=== PATIENT | female | born 1935 | race Caucasian/White ===

== ENCOUNTER 2017-09-20 18:55 | Observation (INO) | payer OTHER ==
[~2017-09-20] VITALS: Ht 162.6 cm; Wt 90.7 kg
[~2017-09-20 18:55] MED LIST: KEFLEX500 MG PO; LEVOTHYROXINE0.1 MG PO; LEVOTHYROXINE112 MCG PO; MEDROL4 M2 PO; MOBIC7.5 MG PO; TESSALON PERLE100 M1 PO; TYLENOL #31 TAB PO; VENTOLIN HFA18 GM INH
--- NOTE | 2017-09-20 19:04 | ED CARDIAC/CP/PALPITATIONS ---
History of Present Illness General Chief Complaint: Chest Pain Stated Complaint: BIBA CP Source: patient Exam Limitations: no limitations Allergies Coded Allergies: NO KNOWN ALLERGIES (06/30/15) Reconcile Medications Albuterol Sulfate 1.25 MG/3 ML VIAL.NEB 1 Vial INH/ELY Q4-6 PRN COPD ( Reported) Albuterol Sulfate (Ventolin Hfa) 90 MCG HFA.AER.AD 2 PUF INH Q4-6 PRN PRN SHORTNESS OF BREATH Aspirin (Ecotrin*) 81 MG TABLET.DR 1 TAB PO DAILY HEART HEALTH (Reported) Atorvastatin Calcium 20 MG TABLET 1 TAB PO DAILY HLD (Reported) Benzonatate (Tessalon Perle) 100 MG CAPSULE 1 CAP PO TID PRN COUGH Levothyroxine Sodium 112 MCG TABLET 1 TAB PO DAILY THYROID (Reported) Polyethylene Glycol 3350 (Miralax) 17 GRAM POWD.PACK 1 PAC PO DAILY PRN CONSTIPATION dissolve in water Sennosides/Docusate Sodium (Senokot-S Tablet) 8.6 MG-50 MG TABLET 1 TAB PO BID PRN CONSTIPATION Triage Nurses Notes Reviewed? yes Onset: Abrupt Duration: hour(s): ( 4PM), constant Timing: recent history Quality/Severity: moderate, severe Location: central Radiation: no radiation Activities at Onset: none HPI: 81-year-old female comes into the emergency room for further evaluation of chest pain. Symptoms began around 4 PM today. Denies any shortness of breath vomiting. History of previous [place] according to the patient. She has seen Dr. Albert. She was given FENTANYL nitroglycerin and was given a full-strength aspirin. She is currently chest pain-free. Denies any other associated symptoms. (Bubba Mcguire) Vital Signs & Intake/Output Vital Signs & Intake/Output ED Intake and Output 09/23 0000 09/22 1200 Intake Total 600 220 Output Total 400 300 Balance 200 -80 Intake, Oral 600 220 Output, Urine 400 300 (Emilio Troncoso) Past History Travel History Traveled to [place] past 21 day No Medical History Any Pertinent Medical History? see below for history Endocrine: THYROID DISORDER Surgical History Surgical History: non-contributory Psychosocial History What is your primary language Latvian Family History Hx Contributory? No (Bubba Mcguire) Medical History Cardiovascular: cad (Emilio Troncoso) Review of Systems Review of Systems Constitutional: Reports: no symptoms. EENTM: Reports: no symptoms. Respiratory: Reports: no symptoms. Cardiovascular: Reports: see HPI. GI: Reports: no symptoms. Genitourinary: Reports: no symptoms. Musculoskeletal: Reports: no symptoms. Skin: Reports: no symptoms. Neurological/Psychological: Reports: no symptoms. Hematologic/Endocrine: Reports: no symptoms. Immunologic/Allergic: Reports: no symptoms. All Other Systems: Reviewed and Negative (Bubba Mcguire) Physical Exam Physical Exam General Appearance: well developed/nourished, no apparent distress, alert, awake Head: atraumatic, normal appearance Eyes: Bilateral: normal appearance, EOMI. Ears, Nose, Throat: normal ENT inspection, hearing grossly normal Neck: normal inspection Respiratory: no respiratory distress Cardiovascular: regular rate/rhythm Gastrointestinal: soft Back: normal inspection Extremities: normal capillary refill, normal range of motion, no edema Neurologic/Psych: awake, alert, oriented x 3 Skin: intact, normal color (Bubba Mcguire) Core Measures ACS in differential dx? Yes CVA/TIA Diagnosis No Sepsis Present: No Sepsis Focused Exam Completed? No (Edu Smith DO) Progress Differential Diagnosis: AMI, aortic dissection, cholecystitis, costochondritis, myocarditis, pancreatitis, pericarditis, pneumonia, pneumothorax, pulmonary embolism, PUD/GERD, respiratory failure, unstable angina Diagnostic Imaging: Viewed by Me: Radiology Read. Discussed w/RAD: Radiology Read. Initial ED EKG: normal sinus rhythm, incomplete left bundle-branch block, rate 72, Hand-Off Endorsed To: Emilio Troncoso Endorsed Time: 1952 (Bubba Mcguire) Plan of Care: Orders Procedure Date/time Status OXYGEN 09/22 UNK Complete OXYGEN DAILY CHARGE 09/22 UNK Complete Case was discussed and signed out to me at 8 PM on repeat evaluation patient resting in no apparent distress she denies any pain at this time the symptoms resolved with nitroglycerin repeat blood pressure was within normal limits I discussed with her plan of care pending troponin Case discussed with Dr. Smith who evaluated the patient agrees with plan, he spoke with the patient's finger lift operator Dr. Albert after discussion regarding the patient's presentation and labs we'll make her a telemetry's for repeat troponin telemetry monitoring cardiology consult Case discussed with Dr. WHITE WILL PLACE IN TELE OBS Diagnostic Imaging: Viewed by Me: Radiology Read. Discussed w/RAD: Radiology Read. Radiology Impression: PATIENT: CHRISTIANA BISHOP PRESENT AGE: 81 PATIENT ACCOUNT NO: [id number] : 33 LOCATION: [facility] ([place] ORDERING PHYSICIAN: Bubba EVANS SERVICE DATE: 09/20/17 EXAM TYPE : RAD - XRY-PORTABLE CHEST XRAY EXAMINATION: XR PORTABLE CHEST CLINICAL INFORMATION: Chest pain. COMPARISON: Chest CTA 07/07/2017. TECHNIQUE: Portable frontal view of the chest was obtained. FINDINGS: There is mild elevation of the right hemidiaphragm. The lungs are clear without consolidation, edema, or effusion. There is no pneumothorax. The osseous structures are grossly intact. The cardiomediastinal silhouette appears normal. IMPRESSION: No active disease in the chest. DICTATED BY: Saqib Corral MD DATE/TIME DICTATED:09/20/172049 SR. OPERATIONS MANAGER:VLADIMIR DATE/TIME TRANSCRIBED:09/20/172049 CONFIDENTIAL, DO NOT COPY WITHOUT APPROPRIATE AUTHORIZATION. <Electronically signed in Other Vendor System> SIGNED BY: Saqib Corral MD 09/20/172054 (Emilio Troncoso) Departure Departure Condition: Stable Referrals: Alia Mchugh DO (PCP/Family) Departure Forms: Customer Survey General Discharge Information Prescriptions: Current Visit Scripts Polyethylene Glycol 3350 (Miralax) 1 PAC PO DAILY PRN CONSTIPATION #30 PAC dissolve in water Sennosides/Docusate Sodium (Senokot-S Tablet) 1 TAB PO BID PRN CONSTIPATION #60 TAB (Bubba Mcguire) Departure Time of Disposition: 2049 Disposition: HOME OR SELF CARE Clinical Impression Primary Impression: Chest pain Observation Note Spoke With: Santos HU,Kelley Physician Advisor Notified: KALEIGH HU,DURAN Abreu Place Patient In: Non-ED OBS Care Area Rationale for Observation: My rational for observation is as follows Cardiology consult trend labs telemetry monitoring trend troponins premature discharge would BE medically harmful (Emilio Troncoso) PA/RAILWAY YARD ASSISTANT Co-Sign Statement Statement: ED Attending supervision documentation- [X] I saw and evaluated the patient. I have also reviewed all the pertinent lab results and diagnostic results. I agree with the findings and the plan of care as documented in the PA's/RAILWAY YARD ASSISTANT's documentation. [] I have reviewed the ED Record and agree with the PA's/RAILWAY YARD ASSISTANT's documentation. [] Additions or exceptions (if any) to the PAs/RAILWAY YARD ASSISTANT's note and plan are summarized below: [] Resident Co-Sign Statement Statement: ED Attending supervision documentation- [X] I saw and evaluated the patient. I have also reviewed all the pertinent lab results and diagnostic results. I agree with the findings and the plan of care as documented in the Resident's documentation. [] I have reviewed the ED Record and agree with the Resident's documentation. [] Additions or exceptions (if any) to the Resident's note and plan are summarized below: [] I have seen and personally examined the patient and I agree with the PAs evaluation. Ongoing intermittent chest pain. Nonspecific EKG changes. Troponin was 0.1 case was discussed with Dr. Albert. He will consult. The patient was Placed in observation on the hospitalist service. (Edu Smith DO) Critical Care Note Critical Care Note Critical Care Time: 30-74 min (Edu Smith DO) Resident Co-Sign Statement Statement: ED Attending supervision documentation- [X] I saw and evaluated the patient. I have also reviewed all the pertinent lab results and diagnostic results. I agree with the findings and the plan of care as documented in the Resident's documentation. [] I have reviewed the ED Record and agree with the Resident's documentation. [] Additions or exceptions (if any) to the Resident's note and plan are summarized below: [] I have seen and personally examined the patient and I agree with the PAs evaluation. Ongoing intermittent chest pain. Nonspecific EKG changes. Troponin was 0.1 case was discussed with Dr. Albert. He will consult. The patient was Placed in observation on the hospitalist service. (Edu Smith DO) Critical Care Note Critical Care Note Critical Care Time: 30-74 min (Edu Smith DO)
[2017-09-20 19:44] LABS: ABSOLUTE BASOPHIL COUNT 0.1 /CUMM (0.0-0.2); ABSOLUTE EOSINOPHIL COUNT 0.3 /CUMM (0.0-0.7); ABSOLUTE GRANULOCYTE CT 4.2 /CUMM (1.4-6.5); ABSOLUTE LYMPH COUNT 1.4 /CUMM (1.2-3.4); ABSOLUTE MONOCYTE COUNT 0.8 /CUMM (0.10-0.60); EOSINOPHIL % 4.9 % (0-5); HEMATOCRIT 42.1 % (37-47); MEAN CORPUSCULAR HGB CONC 32.3 G/DL (33.0-37.0); MEAN CORPUSCULAR VOLUME 83.5 FL (81.0-99.0); MEAN PLATELET VOLUME 8.3 FL (7.4-10.4); PLATELET COUNT 245 /CUMM (130-400); RBC DISTRIBUTION WIDTH 18.3 % (11.5-14.5); RED BLOOD CELL CT 5.04 /CUMM (4.20-5.40); WHITE BLOOD CELL COUNT 6.7 /CUMM (4.8-10.8)
--- NOTE | 2017-09-20 20:55 | RADIOLOGY REPORT ---
EXAMINATION: XR PORTABLE CHEST CLINICAL INFORMATION: Chest pain. COMPARISON: Chest CTA 07/07/2017. TECHNIQUE: Portable frontal view of the chest was obtained. FINDINGS: There is mild elevation of the right hemidiaphragm. The lungs are clear without consolidation, edema, or effusion. There is no pneumothorax. The osseous structures are grossly intact. The cardiomediastinal silhouette appears normal. IMPRESSION: No active disease in the chest.
--- NOTE | 2017-09-21 00:57 | History & Physical ---
Gabi Castro MD 09/21/17 0056: General Information and HPI MD Statement: I have seen and personally examined CHRISTIANA BISHOP and documented this H&P. The patient is a 81 year old F who presented with a patient stated chief complaint of [Chest pain]. Source of Information: patient Exam Limitations: no limitations History of Present Illness: 81 years old female with PMH of COPD on oxygen at night ,CAD and hypothyroidism who came to the ED c/o of chest pain which started in the morning it was sharp 10/10 in severity,localized in midchest and this started while she was sitting down, increased with deep breathing . It was associated with double vision, SOB. Pt mentioned that her chest pain was persistent till she came to the ED and resolved after she got the nitoglycerin and Fentanyl patch. Pt follow up withi DR Sibley and she was at his office last week when he did an Echo and nucleotide stress test, according to the patient the results of these study were fine. Pt lives at home with her son, uses a walker and wheelchair to ambulate Patient was scheduled to see Dr. Weber on for COPD Pt finished a course of Valcyclovir yesterday which was prescribed by her primary care doctor for persistent headache which had is due to shingles ED course: Vital signs: Blood pressure 206/91, dropped to 153/78 after worse, pulse 65, respiratory 22, temperature 97.8, pulse ox 95 on 2 L Labs on admission: WBC 56.7, hemoglobin 13.6, platelet 245, sodium 138, potassium 4.4, BUN 21, creatinine 1.2, glucose 102, troponin 0.1, alkaline phosphatase 81 Chest x-ray no active disease in the chest EKG showed normal sinus rhythm with a rate of 72, widened QRS 112, QTC 408 Allergies/Medications Allergies: Coded Allergies: NO KNOWN ALLERGIES (06/30/15) Past History Travel History Traveled to [place] past 21 day No Medical History Cardiovascular: cad Respiratory: COPD Endocrine: THYROID DISORDER Surgical History Surgical History: non-contributory Past Family/Social History Psychosocial History ETOH Use: denies use Illicit Drug Use: denies illicit drug use Review of Systems Review of Systems Constitutional: Reports: chills, malaise, weakness. Denies: diaphoresis, fever. EENTM: Denies: no symptoms. Cardiovascular: Reports: chest pain. Denies: edema, orthopena, palpitations, peripheral edema. Respiratory: Denies: no symptoms. GI: Denies: constipation, diarrhea, distention, melena, nausea, vomiting. Genitourinary: Denies: discharge, dysuria, frequency, hematuria, hesitation, nocturia. Musculoskeletal: Denies: gout, joint pain, joint swelling, muscle pain. Skin: Denies: no symptoms. Neurological/Psychological: Denies: no symptoms. Exam & Diagnostic Data Last 24 Hrs of Vital Signs/I&O Vital Signs Date Time Temp Pulse Resp B/P B/P Pulse O2 O2 Flow FiO2 Mean Ox Delivery Rate 09/20 2212 97.8 65 22 153/78 95 Nasal 2.0L Cannula 09/20 2035 98.4 63 22 143/65 96 Nasal 2.0L Cannula 09/20 1936 64 20 138/76 95 Nasal 2.0L Cannula 09/20 1930 95 Nasal 2.0L Cannula 09/20 1907 78 20 206/91 99 Nasal 4.0L Cannula Intake & Output 09/21 0800 09/21 0000 09/20 1600 Intake Total Output Total Balance Patient 200 lb Weight Weight Reported by Patient Measurement Method Physical Exam General Appearance Alert, Oriented X3, Cooperative, No Acute Distress Skin No Rashes HEENT Atraumatic, PERRLA, EOMI, Mucous Membr. moist/pink Neck Supple, No JVD Cardiovascular Normal S1, Normal S2, No Murmurs Lungs Clear to Auscultation, Normal Air Movement Abdomen Normal Bowel Sounds, Soft, No Tenderness Neurological Normal Speech, Strength at 5/5 X4 Ext, Normal Tone Extremities No Clubbing, No Cyanosis, No Edema Vascular Normal Pulses, Pulses Symmetrical Sepsis Peripheral Pulse Location: Radial Assessment/Plan Assessment: 81 years old female with PMH of COPD on oxygen at night ,CAD and hypothyroidism who came to the ED c/o of chest pain which started in the morning it was sharp 10/10 in severity,localized in midchest and this started while she was sitting down, increased with deep breathing, and EKG didn't show acute changes from the previous one, troponin was negative #Angina: Admit the patient to telemetry floor Close monitoring of vital signs Aspirin 81 mg daily Serial troponin and EKG Close monitoring CBCs and BEP Is and Os PT consult Cardiology consult appreciated (patient follow-up with Dr. Sibley) Pain control with Tylenol, Vicodin, #History of COPD: Continue home meds including Ventolin Oxygen to keep oxygen saturation above 92 TRC/Nebs #History of hypothyroidism: Continue home dose of levothyroxine 112 g daily full code DVT prophylaxis with subcutaneous heparin Heart healthy diet As Ranked By This Provider Problem List: 1. Chest pain 2. COPD (chronic obstructive pulmonary disease) Core Measures/Misc (04/17) Acute Coronary Syndrome ACS Diagnosis: Yes Congestive Heart Failure Congestive Heart Failure Diagnosis No Cerebrovascular Accident CVA/TIA Diagnosis: No VTE (View Protocol) VTE Risk Factors Age>40 No Mechanical VTE Prophylaxis d/t N/A MechProphylax Ordered No VTE Pharm Prophylaxis d/t NA PharmProphylax ordered Sepsis (View protocol) Sepsis Present: No Santos HU, [facility] 09/21/17 0213: General Information and HPI Allergies/Medications Home Med list Albuterol Sulfate 1.25 MG/3 ML VIAL.NEB 1 Vial INH/ELY Q4-6 PRN COPD ( Reported) Albuterol Sulfate (Ventolin Hfa) 90 MCG HFA.AER.AD 2 PUF INH Q4-6 PRN PRN SHORTNESS OF BREATH Aspirin (Ecotrin*) 81 MG TABLET.DR 1 TAB PO DAILY HEART HEALTH (Reported) Atorvastatin Calcium 20 MG TABLET 1 TAB PO DAILY HLD (Reported) Benzonatate (Tessalon Perle) 100 MG CAPSULE 1 CAP PO TID PRN COUGH Levothyroxine Sodium 112 MCG TABLET 1 TAB PO DAILY THYROID (Reported) Attending MD Review Statement Attending Statement Attending MD Statement: examined this patient, discuss w/resident/PA/GI PHYSICIAN, agreed w/resident/PA/GI PHYSICIAN, reviewed images, amended to note Attending Assessment/Plan: 81 yo F with h/o COPD on nocturnal O2, CAD s/p MD, hypothyroidism, CKD stage 3, is here for evaluation of chest pain, nonradiating, worse with deep inspiration. She got nitro, aspirin and fentanyl with relief of her symptoms. Patient had a recent echo and stress test (1 week back) and was apparently normal. Vitals stable. Labs: BUN 20, creat 1.2 (baseline), trop 0.10, EKG: sinus rhythm, incomplete LBBB, no acute changes. Assessment and plan: 1. Chest pain, rule out ACS in this patient with previous h/o CAD 23 hour observation on Telemetry, monitor for arrhythmias, serial EKG and trop, no need to repeat echo and Cardio consult. Continue aspirin, nitro and statin. Please obtain records from credit card interviewer. - PT consult DVT ppx Lovenox. Full code. Observation Initial Note - I have personally examined CHRISTIANA BISHOP on 09/21/17 at 0214. The disposition of CHRISTIANA BISHOP is uncertain at this time and before a determination can be made, she requires a period of observation for the following reasons [Chest pain, rule out ACS.] Ryley Verdin 09/21/17 0337: Resident Review Statement Resident Statement: examined this patient, discussed with merchandising intern, agreed with merchandising intern, discussed with family, reviewed EMR data (avail), discussed with nursing , discussed with case mgmt, reviewed images, amended to note Other Findings: This is 81 years old female with medical history of COPD on oxygen at night ,CAD and hypothyroidism. She presented to the emergency department the chief complaint of chest pain. Patient stated that the chest pain started in the morning it was sharp 10/10 in severity, localized in midchest and this started while she was sitting down, increased with deep breathing, patient stated this is not the first time she has similar symptoms. Patient stated that currently she doesn't have a chest pain after she received nitroglycerin and fentanyl patch in the ED. Patient stated that she follow with Dr. Albert her credit card interviewer she saw him last week, she mentioned that she had done nuclear stress test and echocardiogram with him that was came back within normal and he prescribed for her nitroglycerin. Patient live with her son and he was walker. Patient stated that she had couple multiple for the past. Physical exam she cannot bend imaging as above. Problem list: -Chest pain to rule out ACS. -Generalized weakness. -COPD on nocturnal oxygen at home Plan: -Admit patient to telemetry floor -Vitals every shift, -Serial troponin and EKG -Cardiology consultation in a.m. -Hold off on echocardiogram until cardiology evaluates -Physical therapy consultation in a.m. -TRC nebs as needed, O2 nocturnal. -Continue home medication -Pain pathway -Heart healthy diet -DVT prophylaxisLovenox -Full code
[2017-09-21] MEDS ORDERED: ASPIRIN EC81 M1 PO (01:01)
[2017-09-21] MEDS ORDERED: ATORVASTATIN CA20 M1 PO (01:03)
[2017-09-21 06:00] LABS: ABSOLUTE BASOPHIL COUNT 0 /CUMM (0.0-0.2); ABSOLUTE EOSINOPHIL COUNT 0.3 /CUMM (0.0-0.7); ABSOLUTE GRANULOCYTE CT 4.3 /CUMM (1.4-6.5); ABSOLUTE LYMPH COUNT 1.4 /CUMM (1.2-3.4); ABSOLUTE MONOCYTE COUNT 0.6 /CUMM (0.10-0.60); BASOPHIL % 0.6 % (0.0-2.0); EOSINOPHIL % 4.5 % (0-5); GRANULOCYTE % 64.6 % (42.2-75.2); HEMATOCRIT 41.6 % (37-47); MEAN CORPUSCULAR HGB 27.1 PG (27.0-31.0); MEAN CORPUSCULAR HGB CONC 32.6 G/DL (33.0-37.0); MEAN CORPUSCULAR VOLUME 83.1 FL (81.0-99.0); MEAN PLATELET VOLUME 8.3 FL (7.4-10.4); PLATELET COUNT 237 /CUMM (130-400); RBC DISTRIBUTION WIDTH 18.2 % (11.5-14.5); RED BLOOD CELL CT 5.01 /CUMM (4.20-5.40); WHITE BLOOD CELL COUNT 6.7 /CUMM (4.8-10.8)
--- NOTE | 2017-09-21 08:38 | PN-Observation ---
Darrel HU,[facility] 09/21/17 0832: Observation Note Observation Note _ I have personally examined CHRISTIANA BISHOP. her disposition is uncertain at this time. Before a determination can be made, she requires continued observation for the following reasons [Chest pain]. Assessment/Plan Medical Assessment: 81 years old woman with PMH of COPD on oxygen at night, CAD and hypothyroidism who came to the ED yesterday complaining of sudden onset of chest pain occuring at rest which increased with deep breathing and was associated with double vision and shortness of breath. Her chest pain resolved after she got the nitoglycerin and Fentanyl patch. She follows up with electric operator, Dr. Albert and she was at his office last week and reportedly had an Echo and nucleotide stress alfredo which were "fine according to the patient. Today she is free of chest pain and shortness of breath. Her serial EKG's show no ST changes overnight and her troponins have been negative. Her oxygen saturation is 99% on room air and her chest x-ray shows no acute abnormality. At this time we are awaiting cardiology review and if she is cleared with no further testing required, she can be discharged with close cardiology follow up. Plan 1. Angina-now resolved * Continue ekg monitor tech for now * Close monitoring of vital signs * Continue aspirin 81 mg daily * CBC and BEP unremarkable this morning * Awaiting physical therapy evaluation * Follow up cardiology consult this morning (patient follow-up with Dr. Sibley) * Pain control with Tylenol, Vicodin, 2. History of COPD: * Continue home meds including Ventolin inhaler * Oxygen by nasal canula to keep oxygen saturation above 92 * TRC/Nebs 3. History of hypothyroidism: * Continue home dose of levothyroxine 112 g daily Full code DVT prophylaxis with subcutaneous heparin and ALPS Heart healthy diet Problem List: 1. Chest pain 2. Dyspnea DVT/Prophylaxis: pharmacological Discharge Plan Stable for Discharge? Yes Subjective Follow-up For: Chest pain Complaints: no complaints Subjective: Ms Bishop has no complaints this morning. She denies chest pain, palpitations or shortness of breath or lightheadedness. She is interested in being discharged. Review of Systems Constitutional: Reports: see HPI. Denies: chills, diaphoresis, fever. EENTM: Reports: double vision (Intermitent). Cardiovascular: Reports: see HPI. Denies: edema, palpitations, syncope. Respiratory: Denies: cough, short of breath, sputum production. Gastrointestinal: Denies: abdominal pain, nausea. Objective Last 24 Hrs of Vital Signs/I&O Vital Signs Date Time Temp Pulse Resp B/P B/P Pulse O2 O2 Flow FiO2 Mean Ox Delivery Rate 09/21 0552 96.7 62 18 151/70 99 Room Air 09/20 2212 97.8 65 22 153/78 95 Nasal 2.0L Cannula 09/20 2035 98.4 63 22 143/65 96 Nasal 2.0L Cannula 09/20 1936 64 20 138/76 95 Nasal 2.0L Cannula 09/20 1930 95 Nasal 2.0L Cannula 09/20 1907 78 20 206/91 99 Nasal 4.0L Cannula Intake & Output 09/21 1600 09/21 0800 09/21 0000 Intake Total Output Total Balance Patient 200 lb Weight Weight Reported by Patient Measurement Method Physical Exam General Appearance: Alert, Oriented X3, Cooperative, No Acute Distress Skin: No Rashes Skin Temp/Moisture Exam: Warm/Dry Sepsis Skin Exam (color): Normal for Ethnicity HEENT: Atraumatic, PERRLA, EOMI, Mucous Membr. moist/pink Neck: Supple, No JVD Cardiovascular: Regular Rate, Normal S1, Normal S2, No Murmurs Lungs: Clear to Auscultation, Normal Air Movement Abdomen: Normal Bowel Sounds, Soft, No Tenderness, No Hepatospenomegaly, No Masses Neurological: Normal Speech, Strength at 5/5 X4 Ext, Normal Tone, Cranial Nerves 3-12 NL Extremities: No Edema, No Tenderness/Swelling Current Medications: Current Medications Sig/Mercedes Start time Last Medication Dose Route Stop Time Status Admin Acetaminophen 500 MG Q6P PRN 09/21 010 AC PO Acetaminophen 975 MG ONCE ONE 09/20 2044 DC 09/20 PO 09/20 Acetaminophen 0 .STK-MED ONE 09/20 2037 DC PO Albuterol Sulfate 2 PUF Q4-6 PRN PRN 09/21 0115 AC INH Aspirin Buffered 81 MG DAILY 09/21 1000 AC PO Atorvastatin Calcium 20 MG 1700 09/21 1700 AC PO Heparin Sodium 0 .STK-MED ONE 09/21 0601 DC (Porcine) .ROUTE Heparin Sodium 5,000 UNIT Q8 09/21 0057 AC 09/21 (Porcine) SC 0640 Hydrocodone Bitart/ 1 TAB Q12P PRN 09/21 0115 AC Acetaminophen PO Levothyroxine Sodium 0.112 MG DAILY AC 09/21 0700 AC 09/21 PO 0640 Last 24 Hrs of Labs/Mics: Laboratory Tests 09/21/17 0825: Troponin I Pending 09/21/17 0545: Anion Gap 11, Estimated GFR 43 L, BUN/Creatinine Ratio 16.7, CBC w Diff NO MAN DIFF REQ, RBC 5.01, MCV 83.1, MCH 27.1, MCHC 32.6 L, RDW 18.2 H, MPV 8.3, Gran % 64.6, Lymphocytes % 21.4, Monocytes % 8.9, Eosinophils % 4.5, Basophils % 0.6, Absolute Granulocytes 4.3, Absolute Lymphocytes 1.4, Absolute Monocytes 0.6, Absolute Eosinophils 0.3, Absolute Basophils 0 09/21/17 0208: Troponin I 0.10 09/20/17 1925: Anion Gap 11, Estimated GFR 43 L, BUN/Creatinine Ratio 17.5, Glucose 102 H, Calcium 9.0, Total Bilirubin 0.4, AST 23, ALT 18, Alkaline Phosphatase 81, Troponin I 0.10, Total Protein 6.8, Albumin 4.0, Globulin 2.8, Albumin/Globulin Ratio 1.4, CBC w Diff NO MAN DIFF REQ, RBC 5.04, MCV 83.5, MCH 27.0, MCHC 32.3 L, RDW 18.3 H, MPV 8.3, Gran % 62.0, Lymphocytes % 20.3 L, Monocytes % 11.8 H , Eosinophils % 4.9, Basophils % 1.0, Absolute Granulocytes 4.2, Absolute Lymphocytes 1.4, Absolute Monocytes 0.8 H, Absolute Eosinophils 0.3, Absolute Basophils 0.1 Carolina HU,Abigail 09/21/17 1421: Observation Note Observation Note _ I have personally examined CHRISTIANA BISHOP her disposition is uncertain at this time. Before a determination can be made, she requires continued observation for the following reasons . 81-year-old female past medical history of coronary artery disease, hypothyroidism and COPD who is here with an episode of chest pain at rest. No EKG changes and troponin trended x3- 0.10. I spoke to cardiology who feels there is no cardiac etiology of this chest pain. At this point I need to evaluate whether the back pain is playing a role in whether she has any limited mobility secondary to the back pain. No need to repeat the echo as it was recently done and will need to follow up with collateral history from the family. If everything is stable, anticipate discharge soon with outpatient follow-up.
[2017-09-21] MEDS ORDERED: ALBUTEROL1.25 MG/1 INH/SOL (10:15)
--- NOTE | 2017-09-21 10:20 | Patient Discharge Instructions ---
Discharge Instructions General Discharge Information You were seen/treated for: Chest pain Watch for these problems: Worsening chest pain and shortness of breath. Special Instructions: 1. Please follow up with your primary care provider and rotary driller prospecting, Dr. Nelson within 1 week of discharge. Diet Continue normal diet: No Recommended Diet: Heart Healthy Activity Full Activity/No Limits: No Activity Self Limited: Yes Acute Coronary Syndrome Inclusion Criteria At DC or during hospital stay patient has or had the following: ACS DIAGNOSIS No Discharge Core Measures Meds if any: Prescribed or Continued at Discharge SHERRILL/ARB if EF <40% No Meds if any: NOT Prescribed or Continued at Discharge Congestive Heart Failure Inclusion Criteria At DC or during hospital stay patient has or had the following: CHF DIAGNOSIS No Discharge Core Measures Meds if any: Prescribed or Continued at Discharge Meds if any: NOT Prescribed or Continued at Discharge Cerebrovascular accident Inclusion Criteria At DC or during hospital stay patient has or had the following: CVA/TIA Diagnosis No Discharge Core Measures Meds if any: Prescribed or Continued at Discharge Meds if any: NOT Prescribed or Continued at Discharge Venous thromboembolism Inclusion Criteria VTE Diagnosis No VTE Type NONE VTE Confirmed by (Test) NONE Discharge Core Measures - Per Current guidelines, there needs to be overlap - treatment for the first 5 days of Warfarin therapy. - If discharged on Warfarin prior to 5 days of - overlap therapy, the patient will need to be - assessed for post discharge needs including - *Post discharge parental anticoagulation - *Warfarin and/or parental anticoagulation education - *Follow up date to check INR post discharge At least 5 days overlap therapy as Inpatient No Meds if any: Prescribed or Continued at Discharge Note: Overlap Therapy is Warfarin and Anticoagulant Meds if any: NOT Prescribed or Continued at Discharge
--- NOTE | 2017-09-21 10:58 | Cons- Cardiology ---
Walter HU,[facility] 09/21/17 1047: General Information and HPI Consulting Request Date of Consult: 09/21/17 Requested By: Carolina HU,Abigail Stanley Reason for Consult: Chest pain ACS Source of Information: patient, old records Exam Limitations: no limitations History of Present Illness: Ms. Thomason is 81 year old female with past medical history significant for COPD on nocturnal oxygen, coronary artery disease, hypothyroidism, chronic back pain who presented to ED yesterday for chief complaint of chest pain for 1 day. Patient reported being fatigued and very tired upon waking up yesterday morning, started to have retrosternal pressure chest pain on rest, pain was progressively worsening associated with shortness of breath, dizziness. Pain didn't improve with nitroglycerin sublingual tabs 2. Patient denied palpitation, pain radiation to arm or jaw, coug, lower extremity edema. Patient reported similar pain in the past, was evaluated by PCP who told her that she had "small heart attack"and was referred to Dr. Albert for evaluation. Patient had recently echocardiogram and nuclear stress test and was told that results were "okay" and prescribed nitroglycerin sublingual tabs for chest pain. Patient denied any previous hospitalization for cardiac reasons, having any cardiac procedure or stent. Her primary care physician is Dr. Mchugh and has seen Dr. Albert only twice. Of note: Patient was recently diagnosed with shingles on the left forehead and prescribed valacyclovir. Patient denied any rash however PCP thought it is shingles. Currently no lesions were noted. No pain except for mild headache. Allergies/Medications Allergies: Coded Allergies: NO KNOWN ALLERGIES (06/30/15) Past History Travel History Traveled to [place] past 21 day No Medical History Cardiovascular: cad Respiratory: COPD Endocrine: THYROID DISORDER Surgical History Surgical History: non-contributory Psychosocial History ETOH Use: denies use Illicit Drug Use: denies illicit drug use Exam & Diagnostic Data Vital Signs and I&O Vital Signs Date Time Temp Pulse Resp B/P B/P Pulse O2 O2 Flow FiO2 Mean Ox Delivery Rate 09/21 0552 96.7 62 18 151/70 99 Room Air 09/20 2212 97.8 65 22 153/78 95 Nasal 2.0L Cannula 09/20 2035 98.4 63 22 143/65 96 Nasal 2.0L Cannula 02/20 1937 64 20 138/76 95 Nasal 2.0L Cannula 09/20 1930 95 Nasal 2.0L Cannula 09/20 1907 78 20 206/91 99 Nasal 4.0L Cannula Intake & Output 09/21 0809/21 0000 09/20 1600 09/20 0809/20 0000 Intake Total Output Total Balance Patient 90.718 kg Weight Weight Reported by Patient Measurement Method Physical Exam: Sitting in the recliner comfortably with no acute distress CVS S1, S2, sytolyic murmur 3 LIS Chest clear, normal air entery Abdomen soft BS+ LE trace bilateral pedal edema Labs/Iglesia Results: Laboratory Tests 09/21 09/21 09/21 0850 0545 0208 Chemistry Sodium (137 - 145 mmol/L) 141 Potassium (3.5 - 5.1 mmol/L) 4.4 Chloride (98 - 107 mmol/L) 107 Carbon Dioxide (22 - 30 mmol/L) 24 Anion Gap (5 - 16) 11 BUN (7 - 17 mg/dL) 20 H Creatinine (0.5 - 1.0 mg/dL) 1.2 H Estimated GFR (>60 ml/min) 43 L BUN/Creatinine Ratio (7 - 25 %) 16.7 Troponin I (< 0.11 ng/ml) 0.10 0.10 Hematology CBC w Diff NO MAN DIFF REQ WBC (4.8 - 10.8 /CUMM) 6.7 RBC (4.20 - 5.40 /CUMM) 5.01 Hgb (12.0 - 16.0 G/DL) 13.6 Hct (37 - 47 %) 41.6 MCV (81.0 - 99.0 FL) 83.1 MCH (27.0 - 31.0 PG) 27.1 MCHC (33.0 - 37.0 G/DL) 32.6 L RDW (11.5 - 14.5 %) 18.2 H Plt Count (130 - 400 /CUMM) 237 MPV (7.4 - 10.4 FL) 8.3 Gran % (42.2 - 75.2 %) 64.6 Lymphocytes % (20.5 - 51.1 %) 21.4 Monocytes % (1.7 - 9.3 %) 8.9 Eosinophils % (0 - 5 %) 4.5 Basophils % (0.0 - 2.0 %) 0.6 Absolute Granulocytes (1.4 - 6.5 /CUMM) 4.3 Absolute Lymphocytes (1.2 - 3.4 /CUMM) 1.4 Absolute Monocytes (0.10 - 0.60 /CUMM) 0.6 Absolute Eosinophils (0.0 - 0.7 /CUMM) 0.3 Absolute Basophils (0.0 - 0.2 /CUMM) 0 09/20 192 Chemistry Sodium (137 - 145 mmol/L) 138 Potassium (3.5 - 5.1 mmol/L) 4.4 Chloride (98 - 107 mmol/L) 103 Carbon Dioxide (22 - 30 mmol/L) 23 Anion Gap (5 - 16) 11 BUN (7 - 17 mg/dL) 21 H Creatinine (0.5 - 1.0 mg/dL) 1.2 H Estimated GFR (>60 ml/min) 43 L BUN/Creatinine Ratio (7 - 25 %) 17.5 Glucose (65 - 99 mg/dL) 102 H Calcium (8.4 - 10.2 mg/dL) 9.0 Total Bilirubin (0.2 - 1.3 mg/dL) 0.4 AST (14 - 36 U/L) 23 ALT (9 - 52 U/L) 18 Alkaline Phosphatase (<127 U/L) 81 Troponin I (< 0.11 ng/ml) 0.10 Total Protein (6.3 - 8.2 g/dL) 6.8 Albumin (3.5 - 5.0 g/dL) 4.0 Globulin (1.9 - 4.2 gm/dL) 2.8 Albumin/Globulin Ratio (1.1 - 2.2 %) 1.4 Hematology CBC w Diff NO MAN DIFF REQ WBC (4.8 - 10.8 /CUMM) 6.7 RBC (4.20 - 5.40 /CUMM) 5.04 Hgb (12.0 - 16.0 G/DL) 13.6 Hct (37 - 47 %) 42.1 MCV (81.0 - 99.0 FL) 83.5 MCH (27.0 - 31.0 PG) 27.0 MCHC (33.0 - 37.0 G/DL) 32.3 L RDW (11.5 - 14.5 %) 18.3 H Plt Count (130 - 400 /CUMM) 245 MPV (7.4 - 10.4 FL) 8.3 Gran % (42.2 - 75.2 %) 62.0 Lymphocytes % (20.5 - 51.1 %) 20.3 L Monocytes % (1.7 - 9.3 %) 11.8 H Eosinophils % (0 - 5 %) 4.9 Basophils % (0.0 - 2.0 %) 1.0 Absolute Granulocytes (1.4 - 6.5 /CUMM) 4.2 Absolute Lymphocytes (1.2 - 3.4 /CUMM) 1.4 Absolute Monocytes (0.10 - 0.60 /CUMM) 0.8 H Absolute Eosinophils (0.0 - 0.7 /CUMM) 0.3 Absolute Basophils (0.0 - 0.2 /CUMM) 0.1 Diagnostic Data EKG Results Sinus rhythm, rate 64 Left bundle branch block Left anterior fascicular branch block No ST or T-wave changes CXR Results FINDINGS: There is mild elevation of the right hemidiaphragm. The lungs are clear without consolidation, edema, or effusion. There is no pneumothorax. The osseous structures are grossly intact. The cardiomediastinal silhouette appears normal. IMPRESSION: No active disease in the chest. Assessment/Plan Assessment/Plan Ms. Thomason is 81 year old female with past medical history significant for COPD on nocturnal oxygen, coronary artery disease, hypothyroidism, chronic back pain for which she used to sleep in recliner who presented to ED with chief complaint of chest pain for 1 day. We think her chest pain is mostly noncardiac related given that chest pain was for at least 6 hours with negative initial and follow up troponin and EKG. Pain didn't respond with nitroglycerin (2 at home and 1 in ambulance) however fentanyl patch helped her pain. Patient denied severe coughing, fall, heartburn. Problem list 1-Recurrent chest pain in setting of normal recent echocardiogram and nuclear stress test 2-negative troponin and EKG 3 Plan -Continue telemetry monitoring -No need for further troponin and EKG trending except if patient develops chest pain -No need to repeat echocardiogram since recent one (aweek ago) was normal -Consider CT thoracic and lumbar spine for chronic back pain -PT evaluation Consult Acknowledgment - Thank you for your consult request. Poncho Pal MD 09/23/17 2206: General Information and HPI Allergies/Medications Home Med List: Albuterol Sulfate 1.25 MG/3 ML VIAL.NEB 1 Vial INH/ELY Q4-6 PRN COPD ( Reported) Albuterol Sulfate (Ventolin Hfa) 90 MCG HFA.AER.AD 2 PUF INH Q4-6 PRN PRN SHORTNESS OF BREATH Aspirin (Ecotrin*) 81 MG TABLET.DR 1 TAB PO DAILY HEART HEALTH (Reported) Atorvastatin Calcium 20 MG TABLET 1 TAB PO DAILY HLD (Reported) Benzonatate (Tessalon Perle) 100 MG CAPSULE 1 CAP PO TID PRN COUGH Levothyroxine Sodium 112 MCG TABLET 1 TAB PO DAILY THYROID (Reported) Polyethylene Glycol 3350 (Miralax) 17 GRAM POWD.PACK 1 PAC PO DAILY PRN CONSTIPATION dissolve in water Sennosides/Docusate Sodium (Senokot-S Tablet) 8.6 MG-50 MG TABLET 1 TAB PO BID PRN CONSTIPATION Assessment/Plan Assessment/Plan Attending addendum The patient was seen and examined by me and all pertinent results and data were reviewed. THe case was discussed in detail with the patient and the hospital care team. I agree with the plan as outlined above. Consult Acknowledgment - Thank you for your consult request.
--- NOTE | 2017-09-21 16:26 | Event Note ---
Event Note Event Note: Patient was seen by physical therapy and will need to be reassessed in the morning because at this time she will 24 hour home-care before safe discharge home can be arranged. Case discussed with disability case manager Sunita and we will start arranging this with patient's son.
[2017-09-21 19:06] VITALS: BP 108/64
[2017-09-22 06:37] VITALS: BP 150/70
--- NOTE | 2017-09-22 08:42 | PN-Observation ---
Darrel HU,[facility] 09/22/17 0842: Observation Note Observation Note _ I have personally examined CHRISTIANA BISHOP. her disposition is uncertain at this time. Before a determination can be made, she requires continued observation for the following reasons [Chest pain]. Assessment/Plan Medical Assessment: 81 yr-old woman with PMH of COPD on prn oxygen at night, CAD and hypothyroidism who presented with sudden onset of chest pain occuring at rest which increased with deep breathing and was associated with double vision and shortness of breath. Her chest pain resolved after she got nitoglycerin and Fentanyl patch in the ER. She follows up with transverse abdominal muscle surgeon, Dr. Albert and she was at his office recently. She had an Echo which showed normal left ventricular function, mild LVH, mild diastolic dysfunction, mild AI, trace MR, and trace TR. Her nuclear stress test on 08/31/17 was normal. Today she is free of chest pain and shortness of breath. Her serial EKG's show no ST changes overnight and her troponins have been negative. Her oxygen saturation is 98% on 2L of oxygen by nasal canula. A chest x-ray shows no acute abnormality. At this time she has been cleared by cardiology with no further testing required. She can be discharged with close cardiology follow up. She complained that she had not had a bowel momenet for over a week which she attributes to a poor PO intake. She will be discharged on laxative medications. She also has some back pain which is chronic for her and she refused opiate medication as she preferred taking as needed advil. Plan 1. Angina-now resolved * Can discontinue ekg monitor tech * Close monitoring of vital signs * Continue aspirin 81 mg daily * Physical therapy cleared her for home PT and supervision by her son for 24 hour care * Follow up with transverse abdominal muscle surgeon Dr. Albert on discharge 2. History of COPD: * Continue home meds including Ventolin inhaler * Oxygen by nasal canula to keep oxygen saturation above 92 * Patient will be reviewed by stereotyper helper Dr. Weber as she had an appointment with him. 3. Constipation-likely from poor PO intake * She denies abdominal discomfort or straining at stool. Rectal exam showed no impaction or hard stools * Will prescribe miralax and senna-S tabs PRN on discharge 4. History of hypothyroidism: * Continue home dose of levothyroxine 112 g daily 5. Chronic back pain * Continue as needed advil on discharge * PT cleared her for home physical therapy Full code DVT prophylaxis with subcutaneous heparin and ALPS Heart healthy diet Problem List: 1. Chest pain 2. COPD (chronic obstructive pulmonary disease) DVT/Prophylaxis: pharmacological Discharge Plan Stable for Discharge? Yes Subjective Follow-up For: Chest pain Complaints: no complaints Subjective: Ms Bishop has no complaints this morning. She denies chest pain, palpitations or shortness of breath or lightheadedness. She is interested in being discharged. She notes that she has not had a bowel movement yet and attributes this to her poor PO intake recently. Review of Systems Constitutional: Denies: chills, fever, weakness. EENTM: Denies: nasal congestion, throat pain. Cardiovascular: Denies: chest pain, edema, palpitations, syncope. Respiratory: Denies: cough, short of breath, sputum production. Gastrointestinal: Reports: constipation. Denies: abdominal pain, diarrhea, nausea, vomiting. Musculoskeletal: Reports: back pain. Denies: neck pain. Objective Last 24 Hrs of Vital Signs/I&O Vital Signs Date Time Temp Pulse Resp B/P B/P Pulse O2 O2 Flow FiO2 Mean Ox Delivery Rate 09/22 0637 97.5 58 20 150/70 98 Nasal 2.0L Cannula 09/22 0000 Nasal 2.0L Cannula 09/21 2019 Nasal 2.0L Cannula 09/21 1906 97.6 78 20 108/64 92 Room Air 4.0L 09/21 1850 97.8 88 18 123/72 98 Room Air Intake & Output 09/22 1600 09/22 0800 09/22 0000 Intake Total 220 60 Output Total 300 Balance -80 60 Intake, Oral 220 60 Output, Urine 300 Patient 200 lb Weight Physical Exam General Appearance: Alert, Oriented X3, Cooperative, No Acute Distress Skin: No Rashes Skin Temp/Moisture Exam: Warm/Dry Sepsis Skin Exam (color): Normal for Ethnicity HEENT: Atraumatic, PERRLA, EOMI, Mucous Membr. moist/pink Neck: Supple, No JVD Cardiovascular: Regular Rate, Normal S1, Normal S2, No Murmurs Lungs: Clear to Auscultation, Normal Air Movement Abdomen: Normal Bowel Sounds, Soft, No Tenderness, No Hepatospenomegaly, No Masses Neurological: Normal Speech, Strength at 5/5 X4 Ext, Normal Tone, Cranial Nerves 3-12 NL Extremities: No Clubbing, No Edema Rectal External hemmorrhoid at 5 oclock. Normal rectal tone and normal rectal mucosa with few pellets of soft stool. No impaction noted Current Medications: Current Medications Sig/Mercedes Start time Last Medication Dose Route Stop Time Status Admin Acetaminophen 500 MG Q6P PRN 09/21 0100 AC PO Albuterol Sulfate 2 PUF Q4-6 PRN PRN 09/21 0115 AC INH Aspirin Buffered 81 MG DAILY 09/21 1000 AC 09/22 PO 0816 Atorvastatin Calcium 20 MG 1700 09/21 1700 AC 09/21 PO 1854 Heparin Sodium 5,000 UNIT Q8 09/21 0057 AC 09/22 (Porcine) SC 0629 Hydrocodone Bitart/ 1 TAB Q12P PRN 09/21 0115 AC 09/22 Acetaminophen PO 0816 Levothyroxine Sodium 0.112 MG DAILY AC 09/21 0700 AC 09/22 PO 0624 Polyethylene Glycol 17 GM DAILY 09/21 2315 AC 09/22 PO 0129 Senna/Docusate Sodium 1 TAB BID PRN 09/21 2315 AC PO Nicola HU,Dary 09/22/17 1544: Observation Note Observation Note _ Patient seen and examined. She denies any chest pain this morning. She continues to complain of firm moderate lower back pain. She was given Vicodin this morning. She's can afebrile with stable vital signs. Chest exam is the clear with overall decreased air entry without any wheezing. Heart sounds S1 plus S2 abdomen soft nontender. She is currently awake alert and oriented does not appear to be in any distress. Scar is noted in the lower area over the lumbar sacrum for prior spine surgery. Plan Will obtain pulmonary consult before discharge Physical therapy evaluation to see if patient can ambulate safely If she can amylase safely she can be discharged home today Patient appears medically stable for discharge.
--- NOTE | 2017-09-22 08:59 | PN- Cardiology ---
Subjective Subjective: Feeling better. No further chest pain. The patient is comfortable. No shortness of breath. No diaphoresis. No lightheadedness or dizziness. No nausea or vomiting. Office records reviewed. Nuclear stress test on 08/31/17 was normal. Echocardiogram on 09/09/17 revealed normal left ventricular function, mild LVH, mild diastolic dysfunction, mild AI, trace MR, and trace TR. Objective Vital Signs and I&Os Vital Signs Date Time Temp Pulse Resp B/P B/P Pulse O2 O2 Flow FiO2 Mean Ox Delivery Rate 09/22 0637 97.5 58 20 150/70 98 Nasal 2.0L Cannula 09/22 0000 Nasal 2.0L Cannula 09/21 2018 Nasal 2.0L Cannula 09/21 1906 97.6 78 20 108/64 92 Room Air 4.0L 09/21 1850 97.8 88 18 123/72 98 Room Air Intake & Output 09/22 1600 09/22 0800 09/22 0000 09/21 1600 09/21 0800 09/21 0000 Intake Total 220 60 Output Total 300 600 Balance -80 60 -600 Intake, Oral 220 60 Output, Urine 300 600 Patient 200 lb 200 lb Weight Weight Reported by Patient Measurement Method Physical Exam: Gen: NAD HEENT: normal Lungs: clear to auscultation, normal resp. effort Heart: RRR, S1, S2, no murmurs Abdomen: Soft, nontender, no masses Extremities: No clubbing, cyanosis, or edema. Neuro: Alert and oriented x 3, cranial nerves intact Current Medications: Current Medications Sig/Mercedes Start time Last Medication Dose Route Stop Time Status Admin Acetaminophen 500 MG Q6P PRN 09/21 0100 AC PO Albuterol Sulfate 2 PUF Q4-6 PRN PRN 09/21 0115 AC INH Aspirin Buffered 81 MG DAILY 09/21 1000 AC 09/22 PO 0816 Atorvastatin Calcium 20 MG 1700 09/21 1700 AC 09/21 PO 1854 Heparin Sodium 5,000 UNIT Q8 09/21 0057 AC 09/22 (Porcine) SC 0629 Hydrocodone Bitart/ 1 TAB Q12P PRN 09/21 0115 AC 09/22 Acetaminophen PO 0816 Levothyroxine Sodium 0.112 MG DAILY AC 09/21 0700 AC 09/22 PO 0624 Polyethylene Glycol 17 GM DAILY 09/21 2315 AC 09/22 PO 0129 Senna/Docusate Sodium 1 TAB BID PRN 09/21 2315 AC PO Results Last 48 Hrs of Labs/Mics: Laboratory Tests 09/21/17 0825: Troponin I 0.10 09/21/17 0545: Anion Gap 11, Estimated GFR 43 L, BUN/Creatinine Ratio 16.7, CBC w Diff NO MAN DIFF REQ, RBC 5.01, MCV 83.1, MCH 27.1, MCHC 32.6 L, RDW 18.2 H, MPV 8.3, Gran % 64.6, Lymphocytes % 21.4, Monocytes % 8.9, Eosinophils % 4.5, Basophils % 0.6, Absolute Granulocytes 4.3, Absolute Lymphocytes 1.4, Absolute Monocytes 0.6, Absolute Eosinophils 0.3, Absolute Basophils 0 09/21/17 0208: Troponin I 0.10 09/20/17 1925: Anion Gap 11, Estimated GFR 43 L, BUN/Creatinine Ratio 17.5, Glucose 102 H, Calcium 9.0, Total Bilirubin 0.4, AST 23, ALT 18, Alkaline Phosphatase 81, Troponin I 0.10, Total Protein 6.8, Albumin 4.0, Globulin 2.8, Albumin/Globulin Ratio 1.4, CBC w Diff NO MAN DIFF REQ, RBC 5.04, MCV 83.5, MCH 27.0, MCHC 32.3 L, RDW 18.3 H, MPV 8.3, Gran % 62.0, Lymphocytes % 20.3 L, Monocytes % 11.8 H , Eosinophils % 4.9, Basophils % 1.0, Absolute Granulocytes 4.2, Absolute Lymphocytes 1.4, Absolute Monocytes 0.8 H, Absolute Eosinophils 0.3, Absolute Basophils 0.1 Recent Imaging Studies: Chest x-ray: Negative Assessment/Plan Assessment/Plan Assessment: 1. Chest pain, ruled out for myocardial infarction. Recent normal nuclear stress test. 2. History of abnormal EKG 3. Normal left ventricle function on recent echocardiogram. 4. COPD Plan: * Likely ready for discharge home today. * Follow up in the office in 1 week. * Continue current medications. Continue telemetry? No
--- NOTE | 2017-09-22 12:44 | Cons- Pulmonary ---
General Information and HPI Consulting Request Date of Consult: 09/22/17 Requested By: Juliette Reason for Consult: Shortness of breath history of COPD History of Present Illness: Patient is an 82-year-old woman admitted for chest pain. She was to be seen in the office this afternoon for evaluation of possible COPD and need for nocturnal oxygen. Patient has been a lifelong nonsmoker. She has mild chronic shortness of breath. She denies having had pulmonary function tests and is unaware of nocturnal oximetry. She has no cough wheezing sputum production. Recent CTA showed no evidence of emphysema. Chest x-ray is unremarkable. Patient reports inability to use bronchodilator medications and only uses her when necessary nebulizer Allergies/Medications Allergies: Coded Allergies: NO KNOWN ALLERGIES (06/30/15) Home Med List: Albuterol Sulfate 1.25 MG/3 ML VIAL.NEB 1 Vial INH/ELY Q4-6 PRN COPD ( Reported) Albuterol Sulfate (Ventolin Hfa) 90 MCG HFA.AER.AD 2 PUF INH Q4-6 PRN PRN SHORTNESS OF BREATH Aspirin (Ecotrin*) 81 MG TABLET.DR 1 TAB PO DAILY HEART HEALTH (Reported) Atorvastatin Calcium 20 MG TABLET 1 TAB PO DAILY HLD (Reported) Benzonatate (Tessalon Perle) 100 MG CAPSULE 1 CAP PO TID PRN COUGH Levothyroxine Sodium 112 MCG TABLET 1 TAB PO DAILY THYROID (Reported) Review of Systems Review of Systems Constitutional: Denies: chills, fever. Cardiovascular: Denies: chest pain, peripheral edema. Respiratory: Reports: short of breath. Denies: cough, hemoptysis, sputum production, stridor , wheezing. GI: Denies: abdominal pain, diarrhea, melena. Past History Travel History Traveled to [place] past 21 day No Medical History Blood Transfusion Hx: No Neurological: NONE EENT: NONE Cardiovascular: cad Respiratory: COPD Gastrointestinal: constipation Hepatic: NONE Renal: NONE Musculoskeletal: chronic back pain Psychiatric: NONE Endocrine: THYROID DISORDER Blood Disorders: NONE Cancer(s): NONE UTILIZATION SUPERVISOR/Reproductive: NONE Surgical History Surgical History: non-contributory Psychosocial History Smoking Status: Never Smoked ETOH Use: denies use Illicit Drug Use: denies illicit drug use Exam & Diagnostic Data Last 24 Hrs of Vital Signs/I&O Vital Signs Date Time Temp Pulse Resp B/P B/P Pulse O2 O2 Flow FiO2 Mean Ox Delivery Rate 09/22 0637 97.5 58 20 150/70 98 Nasal 2.0L Cannula 09/22 0000 Nasal 2.0L Cannula 09/21 2018 Nasal 2.0L Cannula 09/21 190 97.6 78 20 108/64 92 Room Air 4.0L 09/21 1850 97.8 88 18 123/72 98 Room Air Intake & Output 09/22 1600 09/22 0800 09/22 0000 Intake Total 220 60 Output Total 300 Balance -80 60 Intake, Oral 220 60 Output, Urine 300 Patient 200 lb Weight Oxygen saturations 2 L 98% HEENT exam shows no adenopathy exam for chest shows clear lung disla are no wheezes or crackles cardiac exam shows regular S1 and S2 without murmurs abdomen is soft nontender extremities have trace edema Last 48 Hrs of Labs/Iglesia: Laboratory Tests 09/21/17 0825: Troponin I 0.10 09/21/17 0545: Anion Gap 11, Estimated GFR 43 L, BUN/Creatinine Ratio 16.7, CBC w Diff NO MAN DIFF REQ, RBC 5.01, MCV 83.1, MCH 27.1, MCHC 32.6 L, RDW 18.2 H, MPV 8.3, Gran % 64.6, Lymphocytes % 21.4, Monocytes % 8.9, Eosinophils % 4.5, Basophils % 0.6, Absolute Granulocytes 4.3, Absolute Lymphocytes 1.4, Absolute Monocytes 0.6, Absolute Eosinophils 0.3, Absolute Basophils 0 09/21/17 0208: Troponin I 0.10 09/20/17 1925: Anion Gap 11, Estimated GFR 43 L, BUN/Creatinine Ratio 17.5, Glucose 102 H, Calcium 9.0, Total Bilirubin 0.4, AST 23, ALT 18, Alkaline Phosphatase 81, Troponin I 0.10, Total Protein 6.8, Albumin 4.0, Globulin 2.8, Albumin/Globulin Ratio 1.4, CBC w Diff NO MAN DIFF REQ, RBC 5.04, MCV 83.5, MCH 27.0, MCHC 32.3 L, RDW 18.3 H, MPV 8.3, Gran % 62.0, Lymphocytes % 20.3 L, Monocytes % 11.8 H , Eosinophils % 4.9, Basophils % 1.0, Absolute Granulocytes 4.2, Absolute Lymphocytes 1.4, Absolute Monocytes 0.8 H, Absolute Eosinophils 0.3, Absolute Basophils 0.1 Assessment/Plan Impression/Plan: 82-year-old who reportedly carries a diagnosis of COPD lifelong nonsmoker. There is no evidence of COPD emphysema on recent CAT scan. The foundation of this diagnosis is uncertain as she's never had pulmonary function test Recommendations: Check room air saturations at rest and with exertion. Outpatient follow-up for pulmonary function testing. Consult Acknowledgment - Thank you for your consult request.
[2017-09-22] MEDS ORDERED: MIRALAX17 G1 PO (14:07)
[2017-09-22] MEDS ORDERED: SENOKOT-S TABL1 EACH PO (14:07)
== END 2017-09-22 15:01 | disposition home health service (06) ==
LOC: ERH 18:55 → 1NO 09-21 00:15 → ERHI 09-21 00:15 → ENRESERV 09-21 16:21 → ENTRNSPT 09-21 18:23 → EDTRNSPTSTS 09-21 18:55 → 1NO 09-21 19:05 → CMPTRNSPT 09-21 19:40 → 1NO 09-22 09:12
PROVIDERS: Internal Medicine Hematology & Oncology; Physician Assistant Medical
DX: R07.9 Chest pain, unspecified (principal); J44.9 Chronic obstructive pulmonary disease, unspecified; Z99.81 Dependence on supplemental oxygen; I25.10 Atherosclerotic heart disease of native coronary artery without angina pectoris; E03.9 Hypothyroidism, unspecified; Z79.82 Long term (current) use of aspirin; N18.3 Chronic kidney disease, stage 3 (moderate); M54.9 Dorsalgia, unspecified; K59.00 Constipation, unspecified; I25.2 Old myocardial infarction
CPT/HCPCS: 1328; 1530; 1748; 6020; 71045; 82436; 93005; 93010; 96372; 97161-GP; G0378; G8978-GP; G8979-GP; G8980-GP; J1644; J3490